=== PATIENT | female | born 1960 ===

== ENCOUNTER 2020-12-14 14:11 | Outpatient (CLI) | payer OTHER ==
--- NOTE | 2020-12-14 15:31 | Mammography Report ---
RIGHT DIAGNOSTIC MAMMOGRAM INDICATION: Right breast mass at the 2:00 position. COMPARISON: Outside imaging 11/23/2020. FINDINGS: There is a U-shaped biopsy marker in the right breast at the 2:00 position. This is at the site of re cently biopsied lesion. The biopsy marker appears appropriately positioned. IMPRESSION: Right breast mammographic images documenting accurate location of a U-shaped biopsy marker status pos t right breast 2:00 biopsy. BI-RADS Category 4: Suspicious for Malignancy. Signer Name: Pete Cardozo MD Signed: 12/14/2020 3:27 PM Workstation Name: [id number]
--- NOTE | 2020-12-14 15:39 | Ultrasound Report ---
ULTRASOUND-GUIDED CORE NEEDLE BIOPSY Right BREAST WITH CLIP PLACEMENT INDICATION: Right breast lesion at the 2:00 position. FINDINGS: Imaging was performed at an outside facility. The outside report dated 11/23/2020 describes a lesion at the 1:00 position, however outside imaging only shows a lesion at the 2:00 position which would yinka espond with the lesion which is biopsied today. Informed consent was obtained. The lesion within the right breast at the 2:00 position was identified with ultrasound. The overlying skin was cleansed with chloro prep and local anesthesia was obtained with a 1% lidocaine solution. Under ultrasound guidance a 14-gauge spring loaded core biopsy needle w as advanced to the lesion. A total of 4 core samples were obtained. The lesion appeared to collapse n early completely after the first sampling suggesting it is primarily cystic. A U-shaped biopsy marker was placed to tristian the site of the biopsy. Specimen samples were placed in formalin and [facility]. Patient tolerated the procedure well and no immediate complications were identified. A post procedure mammogram demonstrates accurate placement of the biopsy marker. IMPRESSION: Technically successful ultrasound-guided core biopsy of right breast lesion at the 2:00 position with accurate placement of a U-shaped biopsy marker. An addendum will be added to this report once pathology results are available. Signer Name: Pete Cardozo MD Signed: 12/14/2020 3:35 PM Workstation Name: [id number]
== END 2020-12-14 14:12 | disposition home or self-care (01) ==
LOC: SPVWC 14:11
PROVIDERS: ATTEND Internal Medicine
DX: N63.12 Unspecified lump in the right breast, upper inner quadrant (principal); N64.89 Other specified disorders of breast; R92.8 Other abnormal and inconclusive findings on diagnostic imaging of breast
CPT/HCPCS: 88305